=== PATIENT | male | born 1995 | race Caucasian/White ===

== ENCOUNTER 2018-12-01 14:12 | Observation (INO) | payer OTHER, BC ==
[2018-12-01 15:12] LABS: ADD MAN DIFF? NO
[2018-12-01 15:16] LABS: BASOPHILS % 0.2 % (0.0-2.0); HEMATOCRIT 44.6 % (42.0-52.0); HEMOGLOBIN 14.6 g/dl (14.0-18.0); LYMPHOCYTES % 5.8 % (15.0-51.0); MEAN CORPUSCULAR HEMOGLOBIN 29.1 pg (29.0-33.0); MEAN CORPUSCULAR HGB CONC 32.7 g/dl (32.0-37.0); MEAN CORPUSCULAR VOLUME 88.8 fl (82.0-101.0); MEAN PLATELET VOLUME 10.3 fl (7.4-10.4); MONOCYTE # 0.7 10^3/ul (0.3-0.9); MONOCYTES % 3.9 % (0.0-11.0); NEUTROPHIL # 15.4 10^3/ul (1.6-7.5); NEUTROPHILS % 89.3 % (39.0-77.0); PLATELET COUNT 213 10^3/UL (140-415); RED BLOOD COUNT 5.02 10^6/ul (4.70-6.10); RED CELL DISTRIBUTION WIDTH 12.6 % (11.5-14.5)
[2018-12-01 15:16] LABS: WHITE BLOOD COUNT 17.2 10^3/ul (4.8-10.8)
[2018-12-01 15:36] LABS: INR 0.96; PROTIME 12.9 Sec (11.9-14.9)
[2018-12-01 15:37] LABS: ANION GAP 11 (5-13); BLOOD UREA NITROGEN 19 mg/dl (7-20); CALCIUM 9.2 mg/dl (8.4-10.2); CARBON DIOXIDE 24 mmol/L (21-31); CHLORIDE 104 mmol/L (97-110); CREATININE 0.92 mg/dl (0.61-1.24); Estimated GFR > 60 mL/min (>60); GLUCOSE 128 mg/dl (70-220); PARTIAL THROMBOPLASTIN TIME 31.5 Sec (23.0-35.0); POTASSIUM 4.2 mmol/L (3.5-5.1); SODIUM 139 mmol/L (135-144)
[2018-12-01 15:38] LABS: ETHANOL < 10.0 mg/dl (0-0)
[2018-12-01 16:34] LABS: AMPHETAMINE/METHAMPHETAMINE Negative (NEGATIVE); BARBITURATES Negative (NEGATIVE); BENZODIAZEPINES Negative (NEGATIVE); CANNABINOIDS Negative (NEGATIVE); COCAINE Negative (NEGATIVE); OPIATES Negative (NEGATIVE)
[2018-12-01] MEDS ORDERED: ACETAMINOPHEN 325 MG TAB PO (23:00)
[2018-12-01] MEDS ORDERED: ONDANSETRON 4 MG INJ IV (23:00)
[2018-12-01] MEDS ORDERED: ALBUTEROL HFA 8 GM INHALER INH (23:45)
[2018-12-02] MEDS ORDERED: ALBUTEROL HFA 8 GM INHALER INH
[2018-12-02] MEDS ORDERED: DOCUSATE SODIUM 100 MG CAP PO
[2018-12-02] MEDS ORDERED: ACETAMINOPHEN 325 MG TAB PO
[2018-12-02] MEDS ORDERED: NACL 0.9% 3 ML SYG IV
[2018-12-02] MEDS ORDERED: ONDANSETRON 4 MG INJ IV
[2018-12-02] MEDS ORDERED: MAGNESIUM HYDROXIDE 30ML CUP PO
[2018-12-02] MEDS ORDERED: BISACODYL 10 MG SUPP PR
[2018-12-02 05:31] LABS: ANION GAP 5 (5-13); BLOOD UREA NITROGEN 15 mg/dl (7-20); CALCIUM 8.8 mg/dl (8.4-10.2); CARBON DIOXIDE 30 mmol/L (21-31); CHLORIDE 103 mmol/L (97-110); CREATINE KINASE 299 IU/L (23-200); CREATININE 0.66 mg/dl (0.61-1.24); Estimated GFR > 60 mL/min (>60); GLUCOSE 106 mg/dl (70-220); MAGNESIUM 2.1 mg/dl (1.7-2.5); POTASSIUM 3.9 mmol/L (3.5-5.1); SODIUM 138 mmol/L (135-144)
[2018-12-02] MEDS: HYDROCODONE/APAP (5/325) TAB PO ×2 (09:58→16:39)
== END 2018-12-02 17:05 | disposition home or self-care (01) ==
LOC: MS3 22:34 → E/R 14:12
DX: S22.089A Unspecified fracture of T11-T12 vertebra, initial encounter for closed fracture (principal); S32.011A Stable burst fracture of first lumbar vertebra, initial encounter for closed fracture; S06.0X9A Concussion with loss of consciousness of unspecified duration, initial encounter; J45.909 Unspecified asthma, uncomplicated; W11.XXXA Fall on and from ladder, initial encounter
CPT/HCPCS: 36415; 70450; 71260; 72125; 72128; 72131; 72146; 72148; 74177; 80048; 80307; 82550; 83735; 85025; 85610; 85730; 99285-25